=== PATIENT | male | born 2000 | race Caucasian/White ===

== ENCOUNTER 2021-05-18 11:43 | Emergency (ER) | payer BC, OTHER ==
[~2021-05-18] VITALS: Ht 185.5 cm; Wt 68.0 kg
[2021-05-18] MEDS ORDERED: LORazepam INJ 2 MG/ML (ATIVAN) VIAL ONE (11:51)
[2021-05-18] MEDS ORDERED: LACTATED RINGERS 1,000 ML IV SCH (12:00)
[2021-05-18] MEDS ORDERED: ONDANSETRON 4 MG/2 ML (SDV) Z0FRAN IVP ONE (12:00)
--- NOTE | 2021-05-18 12:07 | ED General ---
General Stated Complaint: SOB,N/V,FEVER Source of Information: Patient Exam Limitations: No Limitations (SABRINA SPENCER APRN) History of Present Illness Date Seen by Provider: May 18, 2021 Time Seen by Provider: 12:02 Initial Comments To ER by private vehicle with reports of chills, shortness of breath, nausea vomiting. These began this morning. Has had a [employer] Covid vaccine and has had Covid. He states this feels different. Coincidently he did drink "a lot" of alcohol last night. While in the waiting room he climbed out of the wheelchair, laid on the floor took his shirt off and puked. He believes he has alcohol poisoning and asked "if it is alcohol poisoning, how long do I have left?" Timing/Duration: 4-6 Hours Severity: Moderate Associated Systoms: Nausea/Vomiting (SABRINA SPENCER APRN) Allergies and Home Medications Allergies Coded Allergies: No Known Drug Allergies (Unverified , 05/18/21) Patient Home Medication List Home Medication List Reviewed: Yes (SABRINA SPENCER APRN) Ondansetron (Ondansetron Odt) 8 Mg Tab.rapdis, 8 MG PO Q6H PRN for NAUSEA/VOMITING Prescribed by: SABRINA SPENCER on 05/18/21 1208 Review of Systems Review of Systems Constitutional: see HPI, chills EENTM: see HPI Respiratory: no symptoms reported Cardiovascular: no symptoms reported Gastrointestinal: nausea, vomiting Genitourinary: no symptoms reported Musculoskeletal: no symptoms reported Skin: no symptoms reported Psychiatric/Neurological: No Symptoms Reported Hematologic/Lymphatic: No Symptoms Reported Immunological/Allergic: no symptoms reported (SABRINA SPENCER APRN) Physical Exam Vital Signs Vital Signs - First Documented 05/18/21 11:50 Pulse 82 Resp 16 B/P (MAP) 123/64 (83) Pulse Ox 98 O2 Delivery Room Air (SABINA GOFF MD) Vital Signs Capillary Refill : (SABRINA SPENCER APRN) Height, Weight, BMI Height: '" Weight: lbs. oz. kg; BMI Method: General Appearance: No Apparent Distress, WD/WN, Anxious, Other (Anxious on arrival, picked him up off the floor in the waiting room hyperventilating with carpal spasms. Upon getting to the room he is much more calm and states that he feels okay now.) Eyes: Bilateral Eye Normal Inspection, Bilateral Eye PERRL, Bilateral Eye EOMI HEENT: PERRL/EOMI, TMs Normal Neck: Full Range of Motion, Normal Inspection Respiratory: Lungs Clear, Normal Breath Sounds, No Accessory Muscle Use, No Respiratory Distress Cardiovascular: Regular Rate, Rhythm, Normal Peripheral Pulses Gastrointestinal: Normal Bowel Sounds, Non Tender, Soft Extremity: Normal Capillary Refill, Normal Inspection Neurologic/Psychiatric: Alert, Oriented x3 Skin: Normal Color, Warm/Dry Comments Is alert and oriented GCS 15 converses appropriately (SABRINA SPENCER APRN) Progress/Results/Core Measures Suspected Sepsis SIRS Temperature: Pulse: Respiratory Rate: Laboratory Tests 05/18/21 12:06: White Blood Count 10.3 Blood Pressure / Mean: Laboratory Tests 05/18/21 12:06: Creatinine 0.91, Platelet Count 250, Total Bilirubin 0.8 (SABRINA SPENCER APRN) Results/Orders Lab Results Laboratory Tests Test 05/18/21 12:06 Range/Units White Blood Count 10.3 4.3-11.0 10^3/uL Red Blood Count 5.19 4.30-5.52 10^6/uL Hemoglobin 16.1 13.3-17.7 g/dL Hematocrit 48 40-54 % Mean Corpuscular Volume 92 80-99 fL Mean Corpuscular Hemoglobin 31 25-34 pg Mean Corpuscular Hemoglobin Concent 34 32-36 g/dL Red Cell Distribution Width 11.8 10.0-14.5 % Platelet Count 250 130-400 10^3/uL Mean Platelet Volume 9.1 9.0-12.2 fL Immature Granulocyte % (Auto) 0 % Neutrophils (%) (Auto) 67 42-75 % Lymphocytes (%) (Auto) 25 12-44 % Monocytes (%) (Auto) 6 0-12 % Eosinophils (%) (Auto) 1 0-10 % Basophils (%) (Auto) 0 0-10 % Neutrophils # (Auto) 6.9 1.8-7.8 10^3/uL Lymphocytes # (Auto) 2.6 1.0-4.0 10^3/uL Monocytes # (Auto) 0.7 0.0-1.0 10^3/uL Eosinophils # (Auto) 0.1 0.0-0.3 10^3/uL Basophils # (Auto) 0.0 0.0-0.1 10^3/uL Immature Granulocyte # (Auto) 0.0 0.0-0.1 10^3/uL Sodium Level 142 135-145 MMOL/L Potassium Level 3.4 L 3.6-5.0 MMOL/L Chloride Level 108 H 98-107 MMOL/L Carbon Dioxide Level 16 L 21-32 MMOL/L Anion Gap 18 H 5-14 MMOL/L Blood Urea Nitrogen 8 7-18 MG/DL Creatinine 0.91 0.60-1.30 MG/DL Estimat Glomerular Filtration Rate 106 BUN/Creatinine Ratio 9 Glucose Level 141 H 70-105 MG/DL Calcium Level 9.7 8.5-10.1 MG/DL Corrected Calcium 8.5-10.1 MG/DL Total Bilirubin 0.8 0.1-1.0 MG/DL Aspartate Amino Transf (AST/SGOT) 16 5-34 U/L Alanine Aminotransferase (ALT/SGPT) 9 0-55 U/L Alkaline Phosphatase 76 40-136 U/L Total Protein 8.0 6.4-8.2 GM/DL Albumin 4.6 H 3.2-4.5 GM/DL Serum Alcohol 28 H <10 MG/DL Influenza Type A (RT-PCR) Not Detected Not Detecte Influenza Type B (RT-PCR) Not Detected Not Detecte SARS-CoV-2 RNA (RT-PCR) Not Detected Not Detecte (SABINA GOFF MD) My Orders Orders - SABINA GOFF MD Lorazepam Injection (Ativan Injection) (05/18/21 11:51) (SABINA GOFF MD) Medications Given in ED Current Medications Medications Dose Ordered Sig/Louise Route Start Time Stop Time Status Last Admin Dose Admin Ondansetron HCl 8 mg ONCE ONCE IVP 05/18/21 12:00 05/18/21 12:02 DC 05/18/21 12:09 8 MG (SABINA GOFF MD) Vital Signs/I&O 05/18/21 05/18/21 11:50 13:00 Pulse 82 82 Resp 16 16 B/P (MAP) 123/64 (83) 118/65 Pulse Ox 98 98 O2 Delivery Room Air Room Air (SABINA GOFF MD) Vital Signs/I&O Capillary Refill : (SABRINA SPENCER APRN) Departure Communication (Admissions) 1255-blood pressure 114/79. Alert and oriented feeling much better. He is able to ambulate without assistance out of the ER. Discussed with him the need to use Zofran at home and get some Pedialyte. Continues to deny pain. Alert and oriented. (SABRINA SPENCER APRN) Impression Primary Impression: Hangover Disposition: HOME, SELF-CARE Condition: Stable Departure-Patient Inst. Decision time for Depature: 12:04 (SABRINA SPENCER APRN) Patient Instructions: Effects of Alcohol on Your Health Add. Discharge Instructions: 1. [facility] and sip on this throughout the rest of the day to stay hydrated. Nausea medication as directed. Return to ER for any worsening. Scripts Ondansetron (Ondansetron Odt) 8 Mg Tab.rapdis 8 MG PO Q6H PRN for NAUSEA/VOMITING, #30 TAB Prov: SABRINA SPENCER APRN 05/18/21 Work/School Note: Work Release Form Date Seen in the Emergency Department: May 18, 2021 Return to Work: May 19, 2021 ATTENDING PHYSICIAN NOTE: I was physically present as attending physician in the emergency department during the care of this patient, but I was not directly involved in the decision making or delivery of care for this patient. (SABINA GOFF MD) SABRINA SPENCER APRN May 18, 2021 12:07 SABINA GOFF MD May 18, 2021 18:33
[2021-05-18] MEDS ORDERED: ONDA8TAB13 PO (12:08)
[2021-05-18 12:17] LABS: BASOPHILS % (AUTO) 0 % (0-10); EOSINOPHILS # (AUTO) 0.1 10^3/uL (0.0-0.3); EOSINOPHILS % (AUTO) 1 % (0-10); HEMATOCRIT 48 % (40-54); HEMOGLOBIN 16.1 g/dL (13.3-17.7); LYMPHOCYTES # (AUTO) 2.6 10^3/uL (1.0-4.0); LYMPHOCYTES % (AUTO) 25 % (12-44); MEAN CORPUSCULAR HEMOGLOBIN 31 pg (25-34); MEAN CORPUSCULAR HGB CONC 34 g/dL (32-36); MEAN CORPUSCULAR VOLUME 92 fL (80-99); MEAN PLATELET VOLUME 9.1 fL (9.0-12.2); MONOCYTES # (AUTO) 0.7 10^3/uL (0.0-1.0); MONOCYTES % (AUTO) 6 % (0-12); NEUTROPHILS # (AUTO) 6.9 10^3/uL (1.8-7.8); NEUTROPHILS % (AUTO) 67 % (42-75); PLATELET COUNT 250 10^3/uL (130-400); WHITE BLOOD COUNT 10.3 10^3/uL (4.3-11.0)
[2021-05-18 12:24] LABS: ALBUMIN 4.6 GM/DL (3.2-4.5); CHLORIDE 108 MMOL/L (98-107); POTASSIUM 3.4 MMOL/L (3.6-5.0); SODIUM 142 MMOL/L (135-145)
[2021-05-18 12:25] LABS: CALCIUM 9.7 MG/DL (8.5-10.1)
[2021-05-18 12:26] LABS: GLUCOSE 141 MG/DL (70-105)
[2021-05-18 12:28] LABS: BILIRUBIN,TOTAL 0.8 MG/DL (0.1-1.0); CARBON DIOXIDE 16 MMOL/L (21-32)
[2021-05-18 12:30] LABS: ALKALINE PHOSPHATASE 76 U/L (40-136); CREATININE SERUM 0.91 MG/DL (0.60-1.30); GFR ESTIMATED 106
[2021-05-18 12:31] LABS: BUN/CREATININE RATIO 9
[2021-05-18 12:33] LABS: ALANINE AMINOTRANSFERASE 9 U/L (0-55)
[2021-05-18 13:00] VITALS: BP 118/65
== END 2021-05-18 13:00 | disposition home or self-care (01) ==
LOC: ER 11:45
DX: F10.129 Alcohol abuse with intoxication, unspecified (principal); Z20.822 Contact with and (suspected) exposure to COVID-19
CPT/HCPCS: 80053; 85025; 87636; 99284; G0480; 36415; 80320